=== PATIENT | female | born 1975 | race Hispanic/Latino ===

== ENCOUNTER 2017-06-02 18:41 | Emergency (ER) | payer SELFPAY ==
[2017-06-02] MEDS ORDERED: ACETAMINOPHEN 325 MG TAB ONE (20:32)
== END 2017-06-02 20:40 | disposition home or self-care (01) ==
LOC: EDH 18:41
DX: M25.511 Pain in right shoulder (principal)
CPT/HCPCS: 73030

== ENCOUNTER 2017-07-22 18:30 | Emergency (ER) | payer SELFPAY ==
[2017-07-22] MEDS ORDERED: SODIUM CHLORIDE 0.9% 1000ML 1,000 ML IV ONE (19:11)
[2017-07-22] MEDS ORDERED: KETOROLAC TROMETHAMINE 30MG/ML ONE (19:11)
[2017-07-22 19:12] LABS: APPEARANCE,URINE Clear (CLEAR); BILIRUBIN,URINE Negative (NEGATIVE); COLOR,URINE Yellow (YELLOW); GLUCOSE, URINE (UA) Negative (NEGATIVE); KETONES,URINE Negative (NEGATIVE); LEUKOCYTE ESTERASE ,URINE Moderate (NEGATIVE); NITRATE,URINE Negative (NEGATIVE); OCCULT BLOOD,URINE Moderate (NEGATIVE); PH,URINE 5.5 (5.0-8.0); PROTEIN,URINE Negative (NEGATIVE)
[2017-07-22 19:14] LABS: BASOPHILS % (AUTO) 0.2 % (0.0-5.0); EOSINOPHILS % (AUTO) 1.9 % (0.0-8.0); LYMPHOCYTES % (AUTO) 19.4 % (21.0-51.0); MEAN CORPUSCULAR HEMOGLOBIN 30.4 pg (27.0-33.0); MEAN CORPUSCULAR HGB CONC 35.3 g/dL (32.0-36.0); MEAN CORPUSCULAR VOLUME 85.9 fL (79-99); MONOCYTES % (AUTO) 9.8 % (3.0-13.0); NEUTROPHILS % (AUTO) 68.7 % (40.0-77.0); NUCLEATED RED BLOOD CELLS 0.1 % (0.0-0.19); PLATELET COUNT (AUTO) 257 K/uL (130-400); RED BLOOD CELL COUNT(AUTO) 4.77 MIL/uL (4.00-5.50); RED CELL DISTRIBUTION WIDTH 12.9 % (11.0-15.5)
[2017-07-22 19:15] LABS: HCG,QUAL RESULT NEGATIVE (NEGATIVE)
[2017-07-22 19:24] LABS: CREATININE 0.7 mg/dL (0.5-1.5); POTASSIUM 3.6 mmol/L (3.5-5.1)
[2017-07-22 19:29] LABS: BACTERIA,URINE Few /HPF (None Seen); RBC,URINE 0-1 /HPF (0-1)
[2017-07-22 19:29] LABS: ALBUMIN 3.6 g/dL (3.5-5.0); BILIRUBIN,TOTAL 0.4 mg/dL (0.2-1.0); TOTAL PROTEIN, SERUM 7.4 g/dL (6.0-8.3)
[2017-07-22] MEDS ORDERED: IOPAMIDOL-370 75 ML VIAL IV ONE (19:45)
== END 2017-07-22 20:47 | disposition home or self-care (01) ==
LOC: EDH 18:30
DX: S39.012A Strain of muscle, fascia and tendon of lower back, initial encounter (principal); N83.292 Other ovarian cyst, left side; K42.9 Umbilical hernia without obstruction or gangrene; X58.XXXA Exposure to other specified factors, initial encounter; Y93.89 Activity, other specified; Y92.89 Other specified places as the place of occurrence of the external cause; Y99.8 Other external cause status
CPT/HCPCS: 36415; 71045; 74177; 80053; 81001; 81025; 83690; 85025; 87088; 96374; 99285; J1885; J7030; Q9967

== ENCOUNTER 2018-06-15 18:54 | Emergency (ER) | payer OTHER | END 2018-06-15 20:53 | disposition home or self-care (01) | LOC: EDH 18:54 | DX: S99.812A Other specified injuries of left ankle, initial encounter (principal); X50.1XXA Overexertion from prolonged static or awkward postures, initial encounter; Y93.89 Activity, other specified; Y92.098 Other place in other non-institutional residence as the place of occurrence of the external cause; Y99.8 Other external cause status | CPT/HCPCS: 29515; 73610 ==

== ENCOUNTER 2021-05-04 20:55 | Emergency (ER) | payer OTHER ==
[~2021-05-04] VITALS: Ht 152.4 cm; Wt 68.0 kg
[2021-05-04 21:21] VITALS: BP 112/88
[2021-05-04] MEDS ORDERED: DEXAMETHASONE 4 MG TAB PO SCH (22:00)
[2021-05-04] MEDS ORDERED: ACETAMINOPHEN 500 MG TABLET PO ONE (22:00)
[2021-05-04] MEDS: ALBUTEROL INHALER 90MCG/INH IH PRN ×2 (22:20→23:13)
[2021-05-04 22:35] LABS: APPEARANCE,URINE Cloudy (CLEAR); BILIRUBIN,URINE Negative (NEGATIVE); COLOR,URINE Yellow (YELLOW); GLUCOSE, URINE (UA) Negative (NEGATIVE); KETONES,URINE Negative (NEGATIVE); LEUKOCYTE ESTERASE ,URINE Moderate (NEGATIVE); NITRATE,URINE Negative (NEGATIVE); OCCULT BLOOD,URINE Negative (NEGATIVE); PROTEIN,URINE Negative (NEGATIVE)
[2021-05-04 22:48] LABS: HCG,QUAL RESULT NEGATIVE (NEGATIVE)
[2021-05-04 22:55] LABS: BACTERIA,URINE Few /HPF (None Seen); RBC,URINE 0-1 /HPF (0-1); SQUAMOUS EPITHELIAL CELL,UR Moderate /HPF (0-2)
[2021-05-04] MEDS ORDERED: ALBU8.5H8 IH (22:56)
[2021-05-04] MEDS ORDERED: D-ME1POW16 PO (22:56)
[2021-05-04] MEDS ORDERED: CEPH500B PO (22:56)
[2021-05-04] MEDS ORDERED: PRED20TA3 PO (22:56)
[2021-05-04] MEDS ORDERED: CEFTRIAXONE 1G VIAL IM ONE (23:00)
[2021-05-04] MEDS ORDERED: LIDOCAINE HCL-MPF 1% 2ML VIAL ONE (23:09)
== END 2021-05-04 23:35 | disposition home or self-care (01) ==
LOC: EDH 20:55
DX: N39.0 Urinary tract infection, site not specified (principal); J06.9 Acute upper respiratory infection, unspecified; Z20.822 Contact with and (suspected) exposure to COVID-19; Z98.890 Other specified postprocedural states; Z79.899 Other long term (current) drug therapy
CPT/HCPCS: 71045; 81001; 81025; 87077; 87088; 87186; 87635; 87804 ×2; 96372; 99284; C9803; J0696; J3490; J8540

== ENCOUNTER 2021-10-14 17:50 | Emergency (ER) | payer OTHER ==
[~2021-10-14] VITALS: Ht 152.4 cm; Wt 70.3 kg
[~2021-10-14 17:50] MED LIST: ALBU8.5H8 IH; CEPH500B PO; D-ME1POW16 PO; PRED20TA3 PO
[2021-10-14 20:02] VITALS: BP 122/80
== END 2021-10-14 20:49 | disposition home or self-care (01) ==
LOC: EDH 17:50
DX: U07.1 COVID-19 (principal); Z79.899 Other long term (current) drug therapy; Z98.890 Other specified postprocedural states
CPT/HCPCS: 99283; 87635; C9803

== ENCOUNTER 2025-01-24 12:07 | Emergency (ER) | payer BC ==
[~2025-01-24] VITALS: Ht 152.4 cm; Wt 68.0 kg
--- NOTE | 2025-01-24 12:14 | ERN ---
ED Note History of Present Illness Stated Complaint: RT ABD PAIN AFTER FALL Chief Complaint: Mechanical Fall Time Seen by MD: 12:09 Dictation: PATIENT IS A 49-YEAR-OLD FEMALE HERE WITH RIGHT LOWER ABDOMINAL WALL PAIN TENDERNESS AFTER SHE TRIPPED AND FELL AND HIT A POLE. THIS WAS DONE EARLIER THIS MORNING. SHE IS NOT ON ANY BLOOD THINNERS DID NOT HIT HER HEAD NO NAUSEA VOMITING. SHE HAS NOT TO ARRIVAL EVALUATION OF THE ABDOMINAL WALL IN TRIAGE DEMONSTRATES NO ECCHYMOSIS NO LOCALIZED SWELLING. Allergies: Coded Allergies: No Known Drug Allergies (Verified Allergy, Unknown, 05/21/16) Home Meds Active Scripts Prednisone (Prednisone) 20 Mg Tablet, 2 TAB PO AD for 5 Days, #10 TAB 0 Refills TAKE 1 TAB BY MOUTH THREE TIMES PER DAY X3 DAYS, THEN TAKE 1 TAB BY MOUTH TWICE A DAY X2 DAYS, THEN TAKE 1 TAB BY MOUTH ONCE A DAY X1 DAY. Prov:IAM CHA 05/04/21 Albuterol Sulfate (Proair Hfa) 8.5 Gm Hfa.aer.ad, 2 PUFF IH QIDP, #1 INHALER Prov:IAM CHA 05/04/21 D-Methorphan/PE/Acetaminophen (Theraflu Ms Severe Cold Pckt) 1 Each Powd.pack, 1 EACH PO QIDP, #20 PACK Prov:IAM CHA 05/04/21 Cephalexin Monohydrate (Keflex) 500 Mg Cap, 500 MG PO TID for 7 Days, #21 CAP Prov:IAM CHA 05/04/21 Past Medical History Past Medical History: No Pertinent History Surgical History: Other Surgical History Other: LEFT BREAST CYST REMOVAL Family History: Negative Social History: Negative History: Not Applicable RN Note Reviewed/Agreed w/PFSH: Yes Review of System Dictation CONSTITUTIONAL: NEGATIVE EXCEPT FOR HPI HEAD/FACE: NEGATIVE EXCEPT FOR HPI EENT: NEGATIVE EXCEPT FOR HPI RESPIRATORY: NEGATIVE EXCEPT FOR HPI GASTROINTESTINAL/ABDOMINAL: NEGATIVE EXCEPT FOR HPI RIGHT LOWER ABDOMINAL PAIN TENDERNESS GENITOURINARY: NEGATIVE EXCEPT FOR HPI MUSCULOSKELETAL: NEGATIVE EXCEPT FOR HPI INTEGUMENTARY: NEGATIVE EXCEPT FOR HPI NEUROLOGICAL/PSYCH: NEGATIVE EXCEPT FOR HPI HEMATOLOGIC/LYMPHATIC: NEGATIVE EXCEPT FOR HPI ALL SYSTEMS NEGATIVE, EXCEPT NOTED ABOVE. 13 POINT REVIEW OF SYSTEMS ASSESSED AND ALL NEGATIVE EXCEPT FOR ABOVE. Initial Vital Sign VS Vital Signs Date Time Temp Pulse Resp B/P (MAP) Pulse Ox O2 Delivery O2 Flow Rate FiO2 01/24/25 12:09 98.1 112 16 129/67 98 Room Air 0 01/24/25 19:55 21 Physical Exam Dictation VITAL SIGNS REVIEWED GENERAL APPEARANCE: ALERT, ORIENTED X 3, MODERATE ACUTE DISTRESS, WELL DEVELOPED, NOURISHED. HEAD AND FACE: NON-TRAUMATIC. EYES: PERRL, PINK CONJUNCTIVAS, EYELID NO TRAUMA, ANTERIOR CHAMBER WITH ARCUS SENILIS. EARS: PINNAS INTACT AND NO SIGNS OF TRAUMA OR ERYTHEMA EAR CANALS CLEAR AND NO DISCHARGE TM NO ERYTHEMA NOSE: NO DISCHARGE, NO BLEEDING. OROPHARYNX: MOUTH NORMAL, TONGUE PINK, PHARYNX CLEAR,NO ERYTHEMA, TONSILS NO EXUDATES, NO ABSCESSES NOTED, MUCOUS MEMBRANE MOIST NECK: SUPPLE, NON-TENDER, NO THYROMEGALY, NO MASSES, NO JVD, NO BRUITS BREAST:DEFERRED CHEST:NO TENDERNESS, NO CREPITUS, NO PARADOXICAL MOVEMENT, NO RETRACTIONS LUNGS:CLEAR, WELL-VENTILATED, SYMMETRIC, NO RALES, NO WHEEZING, NO RHONCHI, NO STRIDOR, GOOD BREATH SOUNDS BILATERALLY HEART: REGULAR RATE, REGULAR RHYTHM, NO MURMUR, NO GALLOPS VASCULAR: NO PERIPHERAL EDEMA, ABDOMEN: SOFT, POSITIVE BOWEL SOUNDS, NONDISTENDED, NO GUARDING, MODERATE RIGHT LOWER QUADRANT PAIN TENDERNESS. NO ECCHYMOSIS NO HEMO TOMAH RECTAL: DEFERRED GENITAL: DEFERRED NEUROLOGICAL: NORMAL SPEECH, MOTOR FUNCTION INTACT, SENSORY FUNCTION INTACT MUSCULOSKELETAL: NECK NONTENDER, FULL RANGE OF MOTION, BACK NONTENDER, FULL RANGE OF MOTION, EXTREMITIES: NONTENDER, FULL RANGE OF MOTION SKIN: COLOR PINK, DRY, NO TURGOR, NO RASH, NO LACERATIONS, NO ABRASIONS, NO CONTUSIONS. LYMPHATIC: DEFERRED Results (Laboratory/Radiology) Laboratory/Radiology Laboratory Tests Test 01/24/25 12:26 White Blood Count 17.2 K/uL (4.8-10.8) H Red Blood Count 4.71 MIL/uL (4.00-5.50) Hemoglobin 13.0 g/dL (12.0-16.0) Hematocrit 38.6 % (36-48) Mean Corpuscular Volume 82.0 fL (79-99) Mean Corpuscular Hemoglobin 27.6 pg (27.0-33.0) Mean Corpuscular Hemoglobin Concent 33.7 g/dL (32.0-36.0) Red Cell Distribution Width 13.5 % (11.0-15.5) Platelet Count 283 K/uL (130-400) Mean Platelet Volume 10.5 fL (7.5-10.5) Immature Granulocyte % (Auto) 0.4 % (0-1) Neutrophils (%) (Auto) 82.4 % (40.0-77.0) H Lymphocytes (%) (Auto) 11.3 % (21.0-51.0) L Monocytes (%) (Auto) 5.2 % (3.0-13.0) Eosinophils (%) (Auto) 0.6 % (0.0-8.0) Basophils (%) (Auto) 0.1 % (0.0-5.0) Neutrophils # (Auto) 14.2 K/uL (1.8-7.7) H Lymphocytes # (Auto) 1.9 K/uL (1.0-4.8) Monocytes # (Auto) 0.9 K/uL (0.1-1.0) Eosinophils # (Auto) 0.11 K/uL (0.00-0.70) Basophils # (Auto) 0.02 K/uL (0.00-0.20) Absolute Immature Granulocyte (auto 0.07 K/uL (0-1) Nucleated Red Blood Cells 0.0 % (0.0-0.19) Sodium Level 136 mmol/L (136-145) Potassium Level 3.6 mmol/L (3.5-5.1) Chloride Level 100 mmol/L (101-111) L Carbon Dioxide Level 28 mmol/L (21-32) Blood Urea Nitrogen 14 mg/dL (7-18) Creatinine 0.7 mg/dL (0.5-1.0) Glomerular Filtration Rate Calc 105 mL/min (>90) Random Glucose 146 mg/dL (70-105) H Total Calcium 8.4 mg/dL (8.5-10.1) L PROCEDURE: ABD WALL - US ABD LIMITED/ABD WALL EXAM: US ??? US Abdomen Limited / Abdominal Wall CLINICAL HISTORY: Right lower abdominal pain after fall and impact against metal pole. TECHNIQUE: Real-time ultrasound examination of the right lower abdominal wall performed with image documentation. COMPARISON: None provided. FINDINGS: Right lower abdominal wall demonstrates normal echotexture without evidence of hematoma, fluid collection, or hernia. No focal mass or abnormal vascularity identified. IMPRESSION: * No sonographic evidence of abdominal wall hematoma or hernia. * No acute abnormality detected in the right lower abdominal wall. /[place] DICTATED BY: STUART VARGAS MD DATE: 01/24/251502 ELECTRONICALLY SIGNED BY: STUART VARGAS MD DATE: 01/24/25 150 SPLEEN: Unremarkable. ADRENAL GLANDS: Unremarkable. KIDNEYS, URETERS, AND BLADDER: The kidneys appear within normal limits. There is no hydronephrosis or hydroureter. No urinary calculi are seen. STOMACH AND BOWEL: Unremarkable appearance of the stomach and bowel. No evidence of bowel obstruction. No evidence suggesting enteritis or colitis. Mild constipation. Small and uncomplicated umbilical hernia with fat as content, defect size measuring up to 0.8 cm. APPENDIX: The appendix is normal in caliber, measuring up to 5.5 mm. No evidence of acute appendicitis on CT examination. PERITONEUM: No free fluid. No free air. LYMPH NODES: No lymphadenopathy is evident. REPRODUCTIVE: The uterus is bulky. 3.3 x 2.5 cm heterogeneously enhancing lesion posterior wall, likely an intramural fibroid with subserosal extension. The endometrium is mildly thickened, measuring up to 1.3 cm. Mildly bulky cervix with fluid within the endocervical canal. 2.6 x 3.2 x 2.7 cm right ovarian cyst. VASCULATURE: No evidence of abdominal aortic aneurysm. BONES: No aggressive appearing osseous lesion. No acute osseous pathology evident. IMPRESSION: No CT features of acute appendicitis. Mildly bulky uterus with a fibroid. Mildly thickened endometrium. Recommend ultrasound or contrast-enhanced pelvic MRI correlation. Mildly bulky cervix with fluid in the endocervical canal may represent cervicitis. Recommend clinical correlation. 2.6 x 3.2 x 2.7 cm right ovarian cyst. /[place] Labs Reviewed?: Yes ED Course ED Course Orders Procedure Category Date Status Time Us Abd Limited/Abd US 01/24/25 Resulted Wall 12:12 Cbc With Differential LAB 01/24/25 Complete 12:12 Basic Metabolic Panel LAB 01/24/25 Complete 12:12 Hydrocodone/Apap PHA 01/24/25 Complete 5/325 ([place] 5/325mg) 12:30 Ct Abdomen/Pelvis CT 01/24/25 Resulted W/Contrast 15:07 0.9%Nacl 1000ml (Ns PHA 01/24/25 Complete 1000ml) 15:30 Morphine 2mg Syg PHA 01/24/25 Complete (Morphine 2mg Syg) 15:30 Ondansetron 4mg Inj PHA 01/24/25 Complete (Zofran 4mg Inj) 15:30 Iohexol (Omnipaque) PHA 01/24/25 Complete 18:23 Methylprednisolone PHA 01/24/25 Verified Succ 125mg (Solu-Medr 20:30 Ketorolac PHA 01/24/25 Verified Tromethamine 30mg/Ml 20:30 Current Medications Medications (Trade) Dose Ordered Sig/Dianne Route PRN Reason Start Time Stop Time Status Last Admin Dose Admin Acetaminophen/ Hydrocodone Bitart (NORco 5/325MG) 1 tab ONCE ONCE PO 01/24/25 12:30 01/24/25 12:31 DC 01/24/25 12:30 Iohexol (Omnipaque) 35,000 mg STK-MED ONCE IV 01/24/25 18:23 01/24/25 18:23 DC Morphine Sulfate (morPHINE 2MG SYG) 2 mg ONCE ONCE IVP 01/24/25 15:30 01/24/25 15:31 DC 01/24/25 15:30 Ondansetron HCl (zoFRAN 4MG INJ) 4 mg ONCE ONCE IVP 01/24/25 15:30 01/24/25 15:31 DC 01/24/25 15:30 Sodium Chloride 1,000 ml @ 0 mls/hr ONCE ONCE IV 01/24/25 15:30 01/24/25 15:31 DC 01/24/25 15:30 Vital Signs Date Time Temp Pulse Resp B/P (MAP) Pulse Ox O2 Delivery O2 Flow Rate FiO2 01/24/25 19:55 97.2 82 16 123/59 98 Room Air* 0 21 01/24/25 12:09 98.1 112 16 129/67 98 Room Air 0 1507/[place] A [address]48 WBCS WITH A AN ABDOMINAL WALL ULTRASOUND THAT IS NEGATIVE. WE WILL FOLLOW UP WITH CT CONTRAST TO RULE OUT APPENDICITIS.2029/ 2029/SPOKE WITH PATIENT AT LENGTH WITH ENA JONES INTERPRETING. SHE IS AWARE THAT SHE HAS CERVICITIS WITH A RIGHT OVARIAN FIBROID. DISCHARGED HOME AFTER GIVING HER ADDITIONAL PAIN MEDS TO FOLLOW UP WITH HER DOCTOR AT [facility] TOMORROW FOR S[employer] REFERRAL. Medical Decision Making MDM MDM: DIFFERENTIAL DIAGNOSIS: ABDOMINAL WALL HEMATOMA/APPENDICITIS/DIVERTICULITIS/UTI/ELECTROLYTE IMBALANCE/DEHYDRATION/HERNIA RATIONALE: TESTS CONSIDERED AND ORDERED SECONDARY TO SHARED DECISION MAKING INCLUDE: ULTRASOUND/RADIOLOGY PREVIOUS OUTSIDE RECORDS REVIEWED: OLD ER VISITS. RISK OF COMPLICATION AND/OR MORBIDITY OR MORTALITY OF PATIENT MANAGEMENT: NONE MEDICATIONS-PER MEDICATION RECONCILIATION NEED FOR HOSPITALIZATION: PATIENT DOES NOT MEET CRITERIA FOR HOSPITALIZATION. NONE NEED FOR EMERGENCY MAJOR/MINOR SURGERY: NO THERE ARE NO SOCIAL CONCERNS WITH THIS PATIENT. PRESCRIPTION DRUG MANAGEMENT TYLENOL WITH CODEINE/DOXYCYCLINE PRESCRIPTIONS WILL INCLUDE SYMPTOMATIC CARE PATIENT'S PRIOR EXTERNAL MEDICAL RECORDS FROM OTHER ER VISITS WERE REVIEWED BY ME INDICATED. PRIOR TESTING AND RESULTS FROM PREVIOUS VISITS WERE REVIEWED. PRIOR TESTS WERE TAKEN INTO ACCOUNT WITH MEDICAL DECISION MAKING AND RESOURCE UTILIZATION, INDEPENDENT HISTORIAN/HISTORIANS WERE USED TO OBTAIN COMPLETE MEDICAL HISTORY. I INDEPENDENTLY INTERPRETED THE TEST THAT WERE PERFORMED, RESULTS WERE REVIEWED BY ME AND CONSIDERED FINDINGS ON RADIOLOGY IF ORDERED. MEDICAL MANAGEMENT AND EXAMINATION INTERPRETATION DISCUSSIONS WERE HAD BY ME WITH OTHER QUALIFIED HEALTHCARE PROFESSIONALS INDICATED FOR THE PATIENT'S CARE. DX & DISP Disposition: Discharge Departure Impression: Primary Impression: Ovarian cyst Additional Impressions: Cervicitis, Abdominal wall contusion, Diabetes mellitus with hyperglycemia, Hypocalcemia Condition: Stable Scripts Acetaminophen with Codeine (Acetaminophen-Cod #3 Tablet) 300 Mg-30 Mg Tablet 1 TAB PO Q4H PRN for MODERATE SEVERE PAIN, #15 TAB 0 Refills Prov: JUVENTINO JACOB 01/24/25 Doxycycline Hyclate (Doxycycline Hyclate) 100 Mg Capsule 1 CAP PO BID for 10 Days, #20 CAP 0 Refills Prov: JUVENTINO JACOB 01/24/25 Referrals: SELF,REFERRAL (PCP) Time of Disposition: 20:31 I have reviewed the case, and I agree with, Diagnosis and Plan JUVENTINO JACOB Jan 24, 2025 12:14
[2025-01-24] MEDS: HYDROcodone/APAP 5/325 1 TAB TABLET PO ONE (12:30)
[2025-01-24 12:33] LABS: IMMATURE GRANULOCYTE ABSOLUTE 0.07 K/uL (0-1); NUCLEATED RED BLOOD CELLS 0.0 % (0.0-0.19); PLATELET COUNT (AUTO) 283 K/uL (130-400); RED BLOOD CELL COUNT(AUTO) 4.71 MIL/uL (4.00-5.50); RED CELL DISTRIBUTION WIDTH 13.5 % (11.0-15.5); WHITE BLOOD COUNT (AUTO) 17.2 K/uL (4.8-10.8)
[2025-01-24 12:40] LABS: CREATININE 0.7 mg/dL (0.5-1.0); GLOMERULAR FILTR. RATE CALC 105.0 mL/min (>90); GLUCOSE,RANDOM 146.0 mg/dL (70-105); SODIUM SERUM 136.0 mmol/L (136-145); UREA NITROGEN, BLOOD 14.0 mg/dL (7-18)
--- NOTE | 2025-01-24 14:05 | HMCIMG ---
EXAM: US ??? US Abdomen Limited / Abdominal Wall CLINICAL HISTORY: Right lower abdominal pain after fall and impact against metal pole. TECHNIQUE: Real-time ultrasound examination of the right lower abdominal wall performed with image documentation. COMPARISON: None provided. FINDINGS: Right lower abdominal wall demonstrates normal echotexture without evidence of hematoma, fluid collection, or hernia. No focal mass or abnormal vascularity identified. IMPRESSION: * No sonographic evidence of abdominal wall hematoma or hernia. * No acute abnormality detected in the right lower abdominal wall. /[place]
[2025-01-24] MEDS: 0.9%NACL 1000ML 1,000 ML IV ONE (15:30)
[2025-01-24] MEDS ORDERED: IOHEXOL 350 MG/ML 100ML INFUS..BTL IV ONE (18:23)
--- NOTE | 2025-01-24 20:13 | HMCIMG ---
EXAM: CT Abdomen and Pelvis with IV contrast CLINICAL HISTORY: Right lower quadrant pain and tenderness. To rule out acute appendicitis. TECHNIQUE: Axial computed tomography images of the abdomen and pelvis with intravenous contrast. CONTRAST: with intravenous contrast. COMPARISON: Ultrasound dated January 24, 2025. FINDINGS: LUNG BASES: Mild bibasilar atelectasis. The rest of the lung bases appear clear. No pleural effusions are seen. LIVER: Unremarkable. GALLBLADDER AND BILE DUCTS: The gallbladder appears within normal limits. No radioopaque gallstones are seen. No biliary ductal dilatation is evident. PANCREAS: Unremarkable. SPLEEN: Unremarkable. ADRENAL GLANDS: Unremarkable. KIDNEYS, URETERS, AND BLADDER: The kidneys appear within normal limits. There is no hydronephrosis or hydroureter. No urinary calculi are seen. STOMACH AND BOWEL: Unremarkable appearance of the stomach and bowel. No evidence of bowel obstruction. No evidence suggesting enteritis or colitis. Mild constipation. Small and uncomplicated umbilical hernia with fat as content, defect size measuring up to 0.8 cm. APPENDIX: The appendix is normal in caliber, measuring up to 5.5 mm. No evidence of acute appendicitis on CT examination. PERITONEUM: No free fluid. No free air. LYMPH NODES: No lymphadenopathy is evident. REPRODUCTIVE: The uterus is bulky. 3.3 x 2.5 cm heterogeneously enhancing lesion posterior wall, likely an intramural fibroid with subserosal extension. The endometrium is mildly thickened, measuring up to 1.3 cm. Mildly bulky cervix with fluid within the endocervical canal. 2.6 x 3.2 x 2.7 cm right ovarian cyst. VASCULATURE: No evidence of abdominal aortic aneurysm. BONES: No aggressive appearing osseous lesion. No acute osseous pathology evident. IMPRESSION: No CT features of acute appendicitis. Mildly bulky uterus with a fibroid. Mildly thickened endometrium. Recommend ultrasound or contrast-enhanced pelvic MRI correlation. Mildly bulky cervix with fluid in the endocervical canal may represent cervicitis. Recommend clinical correlation. 2.6 x 3.2 x 2.7 cm right ovarian cyst. /[place]
[2025-01-24] MEDS ORDERED: DOXY100C5 PO (20:32)
[2025-01-24] MEDS ORDERED: ACET-2079 PO (20:32)
[2025-01-24 21:18] VITALS: BP 122/62; PULSE 80; RESP 16; TEMP 97.2; O2SAT 98
== END 2025-01-24 21:24 | disposition home or self-care (01) ==
LOC: EDH 12:07
DX: S30.11XA Contusion of abdominal wall, initial encounter (principal); E11.65 Type 2 diabetes mellitus with hyperglycemia; E83.51 Hypocalcemia; N83.201 Unspecified ovarian cyst, right side; N72 Inflammatory disease of cervix uteri; W01.198A Fall on same level from slipping, tripping and stumbling with subsequent striking against other object, initial encounter; Y93.89 Activity, other specified; Y92.89 Other specified places as the place of occurrence of the external cause; Y99.8 Other external cause status
CPT/HCPCS: 99285; 74177; 96374; 96361; 96375; 76705; 80048; 85025; 36415; J1885; J2919; J2270; J7030; J2405; Q9967